=== PATIENT | female | born 1990 | race Caucasian/White ===

== ENCOUNTER 2018-08-31 10:45 | Emergency (ER) | payer OTHER ==
[~2018-08-31] VITALS: Ht 149.9 cm; Wt 65.8 kg
--- NOTE | 2018-08-31 10:45 | NUR ---
PT AMBULATED TO ER BED 09
[2018-08-31 10:47] VITALS: BP 112/72
--- NOTE | 2018-08-31 10:55 | NUR ---
BIB SELF. PATIENT PRESENTS TO ED WITH MEDIAL ATYPICAL CHEST PAIN. PT STATES SHE STARTED WITH A COUGH AND THE CHEST PAIN THIS MORNING. DENIES N/V/D; SKIN IS PINK/WARM/DRY; AAOX4 WITH EVEN AND STEADY GAIT; LUNGS CLEAR BL; HR EVEN AND REGULAR; PT DENIES ANY FEVER, OR SOB AT THIS TIME; PATIENT STATES PAIN OF 6/10 AT THIS TIME; VSS; PATIENT POSITIONED FOR COMFORT; HOB ELEVATED; BEDRAILS UP X2; BED DOWN. ER MD MADE AWARE OF PT STATUS.
[2018-08-31] MEDS ORDERED: KETOROLAC 60 MG/2 ML VIAL IM ONE (11:00)
[2018-08-31 11:17] VITALS: BP 106/65
--- NOTE | 2018-08-31 11:19 | NUR ---
Patient discharged with v/s stable. Written and verbal after care instructions given and explained. Patient alert, oriented and verbalized understanding of instructions. Ambulatory with steady gait. All questions addressed prior to discharge. ID band removed. Patient advised to follow up with PMD. Rx of prednisone, motrin given. Patient educated on indication of medication including possible reaction and side effects. Opportunity to ask questions provided and answered.
== END 2018-08-31 11:19 | disposition home or self-care (01) ==
LOC: MED 10:45
DX: R07.89 Other chest pain (principal); R06.02 Shortness of breath; R05 Cough; F17.200 Nicotine dependence, unspecified, uncomplicated
CPT/HCPCS: 96372; 99283; J1885